=== PATIENT | male | born 1985 | race Caucasian/White ===

== ENCOUNTER 2016-06-12 07:20 | Emergency (ER) ==
[2016-06-12 07:28] VITALS: BP 128/71
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
[2016-06-12] MEDS ORDERED: BOOSTRIX VACCINE IM ONE (07:43)
== END 2016-06-12 08:31 | disposition home or self-care (01) ==
LOC: P.ED 07:20
DX: S61.213A Laceration without foreign body of left middle finger without damage to nail, initial encounter (principal); S61.215A Laceration without foreign body of left ring finger without damage to nail, initial encounter; M79.645 Pain in left finger(s); Z23 Encounter for immunization; W45.8XXA Other foreign body or object entering through skin, initial encounter
CPT/HCPCS: 90471; 90715